=== PATIENT | male | born 1950 | race Caucasian/White ===

== ENCOUNTER → 2017-10-16 | Outpatient (CLI) | payer OTHER, MEDICARE ==
[~2017-10-16] VITALS: Ht 172.7 cm; Wt 124.7 kg
[~2017-10-16] MED LIST: ASPIR 8181 MG PO; CRESTOR40 MG PO; NEURONTIN 300300 M1 PO; NEXIUM40 MG PO; NORVASC5 MG PO; SERTRALINE HCL100 MG PO; WELLBUTRIN SR150 MG PO
--- NOTE | ~2017-10-16 | P ---
[facility] [place] [address] PROCEDURE REPORT Name: JAKI TAY Room #: REG [facility]#: [id number] Admission: 10/16/17 Attend Phys: Sridhar Ramírez MD Discharge: Date of : 50 Report #: [id number] THIS REPORT FOR: //name// CC: Db Welch BRIEF HISTORY: The patient is a 67-year-old male with family history of colon cancer, mother 84 and brother 60. He has had colon polyps. He also reports he has had a malignant colon polyp, but I do not have documentation with regards to that specific pathology. Last colonoscopy was in 03/2014. PREOPERATIVE DIAGNOSES: Family history of colon cancer, history of polyps and possibly malignant polyp. POSTOPERATIVE DIAGNOSIS: Moderate diverticulosis coli, sigmoid colon. MEDICATIONS: Deep sedation with propofol per anesthesia. SPECIMEN: None. ESTIMATED BLOOD LOSS: None. PROCEDURE: Colonoscopy to cecum and terminal ileum. FINDINGS: Prior to propofol sedation, procedure of colonoscopy discussed with the patient as well as potential risks and its complications. He indicates he understands and desires to proceed. DESCRIPTION OF PROCEDURE: With the patient in left lateral decubitus position, digital examination was completed which revealed no abnormalities. Subsequently, the [employer] video colonoscope was introduced in the rectum, advanced under direct vision to the cecum. Done with minimal difficulty. The cecum was identified by the ileocecal valve and appendiceal orifice. I was able to visualize the distal segment of terminal ileum, which was inspected and noted to be unremarkable. At that point, scope was slowly withdrawn and careful circumferential views were obtained. Upon slow withdrawal of the scope, the prep was noted to have some limitations. There were beans and other food material within the cecum. We irrigated and suctioned as well as possible, but not all the debris could be removed. Within these limitations, no obvious lesions could be seen. However, small lesions could have been overlooked. As we withdrew the scope, overall the prep was acceptable in most areas with an occasional area of a small amount of retained material. Overall, reasonably good views were obtained of the remainder of the colon. The mucosa was within normal limits, normal vascular pattern, normal light reflex. No polyps or neoplastic lesions were seen. As we withdrew the scope, he was noted to have moderately severe diverticular disease of the sigmoid colon without endoscopic [address] [address] PROCEDURE REPORT Name: JASVIRJAKI PRAVIN Room #: REG [facility]#: [id number] Admission: 10/16/17 Attend Phys: Sridhar Ramírez MD Discharge: Date of : 50 Report #: [id number] evidence of diverticulitis. Scope was withdrawn in the rectum. Upon retroflexion, no abnormalities were seen. Scope was withdrawn, patient tolerated procedure well. CONDITION OF THE PATIENT UPON DISCHARGE: Following procedure, the patient drowsy and arousable, will be discharged to home when fully ambulatory. INSTRUCTIONS TO THE PATIENT AND FAMILY AT THE TIME OF DISCHARGE: No neoplastic lesions were seen. Due to family history, minor limitations of prep and considerations of a possible malignant polyp ____ return in 3 years for followup colonoscopy. He otherwise will return to care of Dr. Db Copeland. Withdrawal time from the cecum was 12 minutes 55 seconds. By: [id number] Sridhar Ramírez MD /nt
--- NOTE | ~2017-10-16 | S ---
[facility] [address] [place] [address] SURGICAL PATH RPT PROCEDURE Name: JAKI TAY Room #: REG MACHO Hernandez#: [id number] Admission: 10/16/17 Date of : 50 Discharge: Report #: [id number] Path Case #: [id number] PATHOLOGY REPORT DRAFT COLLECTION DATE: 10/16/2017 RECEIVED DATE: 10/16/2017 SPECIMEN(S) RECEIVED: Smitha chris
--- NOTE | ~2017-10-16 | P ---
[facility] [place] [address] PROCEDURE REPORT Name: JAKI TAY Room #: REG [facility]#: [id number] Admission: 10/16/17 Attend Phys: Sridhar Ramírez MD Discharge: Date of : 50 Report #: [id number] THIS REPORT FOR: //name// CC: Db Welch BRIEF HISTORY: The patient is a 67-year-old male with a history of an antral submucosal nodule. He has also had a history of reflux disease. He does use Aleve daily. In addition, he is considering a gastric sleeve surgery for obesity. PREOPERATIVE DIAGNOSES: Submucosal antral lesion and reflux disease. POSTOPERATIVE DIAGNOSES: 1. A 2.5 cm submucosal lesion proximal antrum/distal body, greater curvature aspect. 2. Solid food dysphagia. MEDICATIONS: Deep sedation with propofol per anesthesia. SPECIMEN: Biopsies of submucosal antral lesion. ESTIMATED BLOOD LOSS: 3 mL. PROCEDURE: EGD with biopsy and Pham dilation. Prior to conscious sedation, the procedure of upper endoscopy and dilation was discussed with the patient as well as potential risks, benefits, and complications. He indicates he understands and desires to proceed. With the patient in left lateral decubitus position, the [employer] video endoscope was inserted in the cervical esophagus under direct vision without difficulty. Examination of this organ through its length revealed normal esophageal mucosa down the squamocolumnar junction. The squamocolumnar junction was inspected and noted to be unremarkable. No ulcers or erosions were seen. He has had complaints of dysphagia, but no strictures or masses were seen. In addition, there is a history of a hiatus hernia, but hiatus hernia was not seen today. He possibly has a small sliding hiatus hernia that was not visible today. Scope was advanced into the stomach, was examined on end view as well as retroflexed views. Examination of the stomach revealed normal appearing mucosa. In the antrum of the stomach, at the junction of the antrum and distal body of the stomach on the greater curvature aspect was once again seen the submucosal lesion. It appears to be stable with regards to size and no more than about 2.5 cm. Multiple biopsies were obtained. Upon retroflexion, no mass lesions were seen. The pylorus, duodenal bulb, and postbulbar sweep were all inspected and noted to be within normal limits. At that point, the scope was slowly withdrawn [address] [address] PROCEDURE REPORT Name: JASVIRJAKI COSTELLO Room #: REG CLI [facility]#: [id number] Admission: 10/16/17 Attend Phys: Sridhar Ramírez MD Discharge: Date of : 50 Report #: [id number] and careful views confirmed the above findings. The patient tolerated the procedure well. Following procedure, he was dilated with passage of a 50-Italian Pham dilator without resistance. CONDITION OF THE PATIENT UPON DISCHARGE: Following procedure, the patient drowsy and prepared for colonoscopy. INSTRUCTIONS TO THE PATIENT AND FAMILY AT THE TIME OF DISCHARGE: He should continue his Nexium for management of reflux disease and also mucosal protection from his Aleve. We will follow up on the biopsy of submucosal lesion. If a specific diagnosis not identified, consider endoscopic ultrasound, especially in view of the fact that he is anticipating gastric sleeve surgery for obesity. He should return for dilation on an as needed basis due to symptoms of dysphagia. He will follow up with Dr. Db Copeland and return to see me as needed. By: [id number] Sridhar Ramírez MD /alen
== END | disposition home or self-care (01) ==
LOC: GI 06:23
DX: Z09 Encounter for follow-up examination after completed treatment for conditions other than malignant neoplasm (principal); K57.30 Diverticulosis of large intestine without perforation or abscess without bleeding; K31.89 Other diseases of stomach and duodenum; R13.19 Other dysphagia; I10 Essential (primary) hypertension; J43.9 Emphysema, unspecified; E78.5 Hyperlipidemia, unspecified; K21.9 Gastro-esophageal reflux disease without esophagitis; G47.33 Obstructive sleep apnea (adult) (pediatric); F32.89 Other specified depressive episodes; F41.8 Other specified anxiety disorders; E66.09 Other obesity due to excess calories; Z68.42 Body mass index [BMI] 45.0-49.9, adult; Z90.49 Acquired absence of other specified parts of digestive tract; Z98.890 Other specified postprocedural states; Z80.0 Family history of malignant neoplasm of digestive organs; Z86.010 Personal history of colon polyps; Z87.891 Personal history of nicotine dependence; Z79.82 Long term (current) use of aspirin; Z79.899 Other long term (current) drug therapy
CPT/HCPCS: 43239; 43450; G0105; 62110; 62900